=== PATIENT | female | born 1955 | race Caucasian/White ===

== ENCOUNTER → 2018-04-12 | Outpatient (CLI) | payer OTHER ==
--- NOTE | 2018-04-12 16:41 | MAM ---
EXAM DESCRIPTION: Diagnostic Mammo,Bilateral: Digital Mammography CLINICAL HISTORY: 62 yearsFemaleLT BREAST PAIN/LUMP . Patient complaining of pain lateral anterior middle left breast. No personal or family history of breast cancer. Childbirth. Postmenopausal. Currently on HRT. Lifetime risk of developing breast cancer (Tyrer-Cuzick model) percentage is 6.2. COMPARISON: Baseline study at this facility.. No prior reports available.. Targeted left breast ultrasound included with this examination. TECHNIQUE: Bilateral CC LM MLO projection full-field images, digital mammographic tomosynthesis technique. Bilateral MLO projection full-field images utilizing 2-D technique. CAD not utilized. FINDINGS: The breast parenchymal density pattern is: Heterogeneously dense breast tissue, which may obscure small masses. No skin thickening or nipple retraction bilateral solitary microcalcifications. Bilateral moles indicated by skin markers. Skin marker was placed on the lateral aspect of the middle third of the left breast at approximately 2:00 position approximately 8 cm from the nipple. Fibroglandular tissues are slightly more prominent in the upper outer quadrant of the left breast compared to the right. No focal, stellate mass or density, focal asymmetry , and no suspicious microcalcifications bilaterally. ULTRASOUND: Scanning in the left breast at the 1:00 to 3:00 position 5 cm from the nipple abutting the skin marker. Heterogeneous tissues with fatty and fibroglandular echotexture. No distinct solid mass or cyst. No parenchymal edema or large calcifications. No overlying skin changes. No abnormal vascularity. IMPRESSION: Benign exam. BIRAD CATEGORY: 2 BENIGN FINDINGS. RECOMMENDATIONS: FOLLOW UP: Routine digital bilateral screening, one year interval from April 2018. Written communication explaining the IMPRESSION and follow-up, will be mailed to the patient and referring health care provider. According to the [employer], yearly mammograms are recommended starting at age 40 and continuing as long as a woman is in good health. Any breast change noted on a breast self-exam should be reported promptly to the patient's healthcare provider. Breast MRI is recommended for women with an approximately 20-25% or greater lifetime risk of breast cancer, including women with a strong family history of breast or ovarian cancer and women who have been treated for Hodgkin's disease. A negative mammographic report should not delay tissue diagnosis in patients with significant clinical history or physical findings. Extremely dense breast tissue limits the sensitivity of digital mammography. Electronically signed by: Quoc Mcgowan MD 04/12/2018 4:40 PM CDT
--- NOTE | 2018-04-13 16:55 | US ---
EXAM DESCRIPTION: Breast,Left: Ultrasound CLINICAL HISTORY: 62 yearsFemaleLEFT BREAST LUMP. Pain lateral left breast. COMPARISON: Digital diagnostic tomosynthesis bilateral breast the same visit. Skin marker on the region of pain lateral left breast.. TECHNIQUE: Transcutaneous scanning of the left breast utilizing dennis-scale and Doppler modes. Scanning performed by the millroom supervisor and Dr. Mcgowan. FINDINGS: Scanning in the left breast at the 1:00 to 3:00 position 5 cm from the nipple abutting the skin marker. Heterogeneous tissues with fatty and fibroglandular echotexture. No distinct solid mass or cyst. No parenchymal edema or large calcifications. No overlying skin changes. No abnormal vascularity. IMPRESSION: 1. Bi-Rads Category 2: Benign. 2. Please refer to bilateral diagnostic digital breast tomosynthesis examination on this visit. The FINDINGS and the FOLLOW-UP plan were reviewed in person with the patient after the examination. Written communication explaining the IMPRESSION and FOLLOW-UP will be mailed to the patient and referring care provider. Electronically signed by: Quoc Mcgowan MD 04/13/2018 4:54 PM CDT
== END ==
LOC: MAMMO 11:00
PROVIDERS: ATTEND Family Medicine
DX: N63.0 Unspecified lump in unspecified breast (principal); N64.4 Mastodynia

== ENCOUNTER → 2018-04-17 | Outpatient (CLI) | payer OTHER ==
--- NOTE | 2018-04-18 06:59 | RAD ---
Procedure: XR SACRUM COCCYX 2 OR MORE VIEWS Exam Date: 04/17/2018 Ordering Provider: LYNETTE DE LA FUENTE Clinical Indication: TROCHANTERIC BURSITIS Comparison: None Findings/impression: There is no acute fracture or subluxation. The sacrum has a normal appearance. The sacrococcygeal junction is intact. There are no lytic or sclerotic lesions. The sacroiliac joints are intact. Electronically signed by: Solo Snow MD 04/18/2018 6:58 AM [facility]
--- NOTE | 2018-04-18 07:03 | RAD ---
Procedure: XR LEFT HIP 2 OR MORE VIEWS Exam Date: 04/17/2018 Ordering Provider: LYNETTE DE LA FUENTE Clinical Indication: TROCHANTERIC BURSITIS, LEFT HIP Comparison: None Findings/impression: There is no fracture or dislocation. Articular surface of the hip is intact. There is no lytic or sclerotic lesion. Electronically signed by: Solo Snow MD 04/18/2018 7:02 AM [facility]
--- NOTE | 2018-04-18 07:12 | RAD ---
Procedure: XR LUMBAR SPINE 4 OR MORE VIEWS Exam Date: 04/17/2018 Ordering Provider: LYNETTE DE LA FUENTE Clinical Indication: TROCHANTERIC BURSITIS Comparison: None Findings/impression: There is no acute fracture or subluxation. Vertebral body heights are maintained. Moderate intervertebral disc space narrowing at L5-S1. There is no appreciable scoliosis. There are no pars defects on oblique views. There are no lytic or sclerotic lesions. Electronically signed by: Solo Snow MD 04/18/2018 7:10 AM [facility]
== END ==
LOC: RAD 13:05
PROVIDERS: ATTEND Family Medicine
DX: M70.62 Trochanteric bursitis, left hip (principal)

== ENCOUNTER → 2018-08-06 | Outpatient (CLI) | payer OTHER ==
--- NOTE | 2018-08-07 10:32 | US ---
EXAM DESCRIPTION: Soft Tissue,Extremity: ULTRASOUND. CLINICAL HISTORY: 62 years Female Localized swelling, mass and lump, left lower limb, thigh region. COMPARISON: None Available. TECHNIQUE: Transcutaneous scanning: Asencio-scale and Doppler modes. FINDINGS: Homogeneous mass in the subcutaneous adipose tissue slightly more echogenic than the surrounding adipose tissue with relatively circumscribed margins measuring 3.8 x 1.3 x 2.2 cm. Palpable. Nonvascular. No distinct cyst. No parenchymal edema or large calcifications. No overlying skin changes. IMPRESSION: Most likely 3.8 cm lipoma upper medial left thigh, corresponding to palpable mass. Consider follow-up study if enlarging, painful, or skin discoloration. Electronically signed by: Quoc Mcgowan MD 08/07/2018 10:[address] [facility]
== END ==
LOC: US 12:19
PROVIDERS: ATTEND Surgery
DX: R22.43 Localized swelling, mass and lump, lower limb, bilateral (principal)

== ENCOUNTER → 2018-09-18 | Outpatient (CLI) | payer OTHER | LOC: LAB.O 11:53 | PROVIDERS: ATTEND Family Medicine | DX: E03.9 Hypothyroidism, unspecified (principal) ==

== ENCOUNTER → 2019-03-20 | Outpatient (CLI) | payer OTHER | LOC: LAB.O 07:06 | PROVIDERS: ATTEND Family Medicine | DX: J30.9 Allergic rhinitis, unspecified (principal); E04.9 Nontoxic goiter, unspecified ==

== ENCOUNTER → 2019-04-22 | Outpatient (CLI) | payer OTHER ==
--- NOTE | 2019-04-23 16:25 | MAM ---
EXAM DESCRIPTION: 3D Screening BILATERAL : Digital Mammography. CLINICAL HISTORY: 63 years Female ANNUAL SCREENING . No complaints. No personal or fatty history of breast cancer. Menarche age 11. Childbirth. Postmenopausal unknown duration. Currently on HRT. Lifetime risk of developing breast cancer (Tyrer-Cuzick model)(%): 6.6. COMPARISON: Bilateral diagnostic digital breast tomosynthesis and directed breast ultrasound second of April 2018.. TECHNIQUE: Bilateral CC and MLO projection full-field images, digital tomosynthesis mammographic technique. Bilateral digital 2-D full-field MLO images. CAD not available for tomosynthesis or 2-D images. FINDINGS: The breast parenchymal density pattern is: Scattered areas of fibroglandular density. No skin thickening or nipple retraction. Bilateral skin moles. Bilateral solitary microcalcifications. No new focal, stellate mass or density, focal asymmetry , and no suspicious microcalcifications bilaterally. Stable mammograms compared to prior study. Taking into account, differences in mammographic technique. IMPRESSION: Benign exam. BIRAD CATEGORY: 2 BENIGN FINDINGS. RECOMMENDATIONS: FOLLOW UP: Routine digital bilateral mammographic screening, one year interval from April 2019. Written communication explaining the IMPRESSION and follow-up, will be mailed to the patient and referring health care provider. According to the [employer], yearly mammograms are recommended starting at age 40 and continuing as long as a woman is in good health. Any breast change noted on a breast self-exam should be reported promptly to the patient's healthcare provider. Breast MRI is recommended for women with an approximately 20-25% or greater lifetime risk of breast cancer, including women with a strong family history of breast or ovarian cancer and women who have been treated for Hodgkin's disease. A negative mammographic report should not delay tissue diagnosis in patients with significant clinical history or physical findings. Extremely dense breast tissue limits the sensitivity of digital mammography. Electronically signed by: Quoc Mcgowan MD 04/23/2019 4:24 PM [facility]
== END ==
LOC: MAMMO 11:30
PROVIDERS: ATTEND Family Medicine
DX: Z12.31 Encounter for screening mammogram for malignant neoplasm of breast (principal)

== ENCOUNTER → 2020-01-07 | Outpatient (CLI) | payer OTHER | LOC: YCFC.O 10:31 | PROVIDERS: ATTEND Family Medicine | DX: E03.9 Hypothyroidism, unspecified (principal) ==